=== PATIENT | female | born 1940 | race Caucasian/White ===

== ENCOUNTER → 2019-06-15 | Outpatient (CLI) | payer MEDICARE, BC, OTHER ==
[~2019-06-15] MED LIST: AMANTADINE HCL100 M2 PO; AMANTADINE HCL100 MG PO; AVONEX33 MCG IM; CEPHALEXIN500 M1 PO; CIPRO500 MG PO; DETROL LA 4MG4 MG PO; DIPHENHYDRAMINE25 MG PO; KLOR-CON 88 MEQ PO; LASIX80 MG PO; LIORESAL20 MG PO; LOMOTIL 0.025 M1 TAB PO; METFORMIN1000 MG PO; METOLAZONE5 MG PO; MIDRIN 325 MG-11 CAP PO; OCEAN NASAL SPR45 ML NS; PROVIGIL200 MG PO; TAGAMET400 MG PO; VITAMIN B-6100 MG PO; VITAMIN D32000 IU PO; ZOFRAN4 M1 PO
== END ==
LOC: MC.RAD 11:26
DX: N63.20 Unspecified lump in the left breast, unspecified quadrant (principal); Z90.13 Acquired absence of bilateral breasts and nipples

== ENCOUNTER 2021-05-24 21:08 | Inpatient (IN) | payer MEDICARE, BC, OTHER ==
[~2021-05-24] VITALS: Ht 165.1 cm; Wt 116.4 kg
[~2021-05-24 21:08] MED LIST changes: +AVONEX PEN30 MCG/0.5 IM; -AVONEX33 MCG IM; +KLOR-CON 1010 MEQ PO; -KLOR-CON 88 MEQ PO; +LASIX 40MG TABL40 MG PO; -LASIX80 MG PO; -VITAMIN D32000 IU PO; +VITAMIND3 5000 PO
[2021-05-24 21:53] LABS: BASO % 0.2 % (0.0-2.0); GRAN # 13.8 K/mm3 (1.4-6.5); GRAN % 77.4 % (42.2-75.2); HEMOGLOBIN 12.5 g/dl (12.5-16.0); LYMPH # 0.8 K/mm3 (1.2-3.4); LYMPH % 4.4 % (20.0-51.0); MEAN CELL VOLUME 84 fl (80.0-100.0); MEAN CORPUSCULAR HEMOGLOBIN 26 pg (27.0-31.0); MEAN CORPUSCULAR HGB CONC 31 g/dl (33.0-37.0); MEAN PLATELET VOLUME 11.4 fl (7.4-10.4); MONO # 2.7 K/mm3 (0.1-0.6); MONO % 15.3 % (1.7-9.3); PLATELET COUNT 234 K/mm3 (130-400); RED BLOOD COUNT 4.76 M/mm3 (4.10-5.30); REDCELL DISTRIBUTION WIDTH-CV 15.4 % (11.5-14.5)
[2021-05-24 22:02] LABS: INR 1.2 (0.8-3.0); PROTHROMBIN TIME 12.9 SECONDS (9.7-12.8)
[2021-05-24 22:04] LABS: PARTIAL THROMBOPLASTIN TIME 33.7 SECONDS (26.0-37.0)
[2021-05-24 22:12] LABS: ALBUMIN 3.4 gm/dL (3.4-4.8); BILIRUBIN,TOTAL 0.7 mg/dL (0.2-1.2); CALCIUM 9.7 mg/dL (8.4-10.2); CREATININE, serum 1.89 mg/dL (0.57-1.11); POTASSIUM 3.9 mmol/L (3.5-4.5); TOTAL PROTEIN 7.3 gm/dL (6.2-8.1)
[2021-05-24 22:16] LABS: BAND 6 % (0-10); HYPOCHROMIA 2+; LYMPHOCYTE 1 % (20.0-51.0); NEUTROPHILS 73 % (42.0-75.2); PLATELET ESTIMATE NORMAL (NORMAL)
[2021-05-24 22:17] LABS: ANISOCYTOSIS 1+
[2021-05-24 22:28] LABS: BUDDING YEAST Present /hpf; MUCOUS Present /lpf; PH 5 (5-8); SQUAMOUS EPITHELIAL 0-2 /hpf; URINE APPEARANCE Cloudy; URINE BACTERIA Many /hpf; URINE BILIRUBIN Negative (NEGATIVE); URINE BLOOD 3+ (NEGATIVE); URINE COLOR Yellow; URINE GLUCOSE Negative (NEGATIVE); URINE KETONE Negative (NEGATIVE); URINE LEUKOCYTE ESTERASE 3+ (NEGATIVE); URINE NITRATE Negative (NEGATIVE); URINE PROTEIN(semi-quant) 2+ (NEGATIVE); URINE UROBILINOGEN Negative (NEGATIVE); URINE WBC >50 /hpf
[2021-05-24 22:32] LABS: THYROID STIMULATING HORMONE 1.726 uIU/mL (0.350-4.940)
[2021-05-24 22:34] LABS: TROPONIN-I 0.065 ng/mL (0.00-0.033)
[2021-05-24 22:37] LABS: COLLECTION METHOD CATHETER
[2021-05-24 23:10] LABS: CALCIUM 8.8 mg/dL (8.4-10.2); CREATININE, serum 1.81 mg/dL (0.57-1.11); POTASSIUM 3.9 mmol/L (3.5-4.5)
[2021-05-25] VITALS (7 sets, daily range): BP systolic 101–134; BP diastolic 38–88; PULSE 73–88; TEMP 97.3–98.7
--- NOTE | 2021-05-25 02:19 | NUR ---
Vancomycin Initial Dosing Pharmacy Note Ordering provider: Cris Sanchez DO Indication/duration: SEVERE SEPSIS 2/2 PNA/UTI / 7 DAYS Trough goal: 15-20 DOSING HX: NONE IDENTIFIED BMI: 56.4 WT: 130.9 KG ADJBW: 80 KG SCR: 1.81 ESTCRCL~ 31 ML/MIN T 1/2 ~ 23H TMAX: 98.1 WBC: 17.9 LA: 3.6 ->2.5 UA -> 2+ PROTEIN, 3+ BLOOD, 3+ LEUK EST, 5-10 RBC, >50 WBC MICRO IN PROCESS CXR REPORTING RLL OPACITY, SUSPECTING PNA. AND PROBABLE SMALL LEFT PLEURAL EFFUSION PT RECEIVED A LOADING DOSE OF 1.5 GM X1. WILL GIVE AN ADDITIONAL 1GM NOW TO ACCOUNT FOR SUB OPTIMAL LOAD. WILL THEN START A MAINTENANCE DOSE OF 1GM Q24H. WILL FOLLOW CLOSELY PT AT HIGH RISK FOR NOT FOLLOWING POPULATION BASED KINETICS AND ACCUMULATION 2/2 ELEVATED BMI. WILL FOLLOW RENAL FUNCTION, MICRO AND TREATMENT PLAN FOR NEED TO ADJUST THERAPY. THANK YOU FOR THIS DOSING CONSULT
--- NOTE | 2021-05-25 03:00 | NUR ---
PATIENT ADMITTED TO ROOM 343 VIA ED CART WITH ER NURSE PRESENT. PATIENT TRANSFER TO BED VIA SLIDE BOARD WITH X4 STAFF ASSIST D/T PATIENT'S WEAKNESS. PATIENT ALERT/ORIENTED. TELE IN PLACE. HEPARIN INFUSING AT 23 ML/HR PREVIOUSLY SET IN ED. OXYGEN CONTINUES PER NC AT 3 L ON ADMIT, REPORTED SOA WITH EXERTION. PATIENT REPORTS CHRONIC H/O INCONTINENCE OF BOTH BOWEL AND BLADDER. OBSERVED SOME REDNESS TO COCCYX AREA WITH SKIN INTACT AND OVERALL SKIN IS VERY DRY AND FLAKING OBSERVED TO MAEVE EXTREMITIES. OBSERVED WEAK NONPRODUCTIVE INTERMITTENT COUGH SINCE ADMITTED TO ROOM.
[2021-05-25 03:39] LABS: ARTERIAL BLD GAS O2 SATURATION 96.4 % (92-100); ARTERIAL BLD GAS TCO2 CT 20.8; ARTERIAL BLOOD GAS BASE EXCESS -4.5 (-2-2); ARTERIAL BLOOD GAS HCO3 19.8 meq/L (22-26); ARTERIAL BLOOD GAS PCO2 33.7 mmHg (35-45); ARTERIAL BLOOD GAS PO2 88.5 mmHg (80-100); ARTERIAL BLOOD GAS pH 7.39 (7.35-7.45)
[2021-05-25] MEDS ORDERED: TYLENOL 500MG500 MG PO (03:41)
[2021-05-25] MEDS ORDERED: JANUVIA 100MG100 MG PO (03:49)
[2021-05-25] MEDS ORDERED: SYNTHROID0.05 MG/TA PO (03:53)
[2021-05-25] MEDS ORDERED: SYNTHROID 0.0.025 MG PO (03:54)
[2021-05-25] MEDS ORDERED: VIBERZI100 MG PO (03:56)
[2021-05-25] MEDS ORDERED: CYMBALTA 60MG60 MG PO (03:58)
[2021-05-25] MEDS ORDERED: MYRBETR50MG PO (03:59)
[2021-05-25] MEDS ORDERED: COZAAR 25MG25 MG/TAB PO (04:00)
[2021-05-25] MEDS ORDERED: GLUCOPHAGE1000 MG PO (04:49)
[2021-05-25] MEDS ORDERED: BENADRYL50 MG PO (04:49)
--- NOTE | 2021-05-25 05:55 | NUR ---
HepXa greater than one. Put on hold. Will recheck at 0800. Primary nurse notified as well.
[2021-05-25 05:58] LABS: CALCIUM 8.5 mg/dL (8.4-10.2); CREATININE, serum 1.85 mg/dL (0.57-1.11); POTASSIUM 3.5 mmol/L (3.5-4.5)
--- NOTE | 2021-05-25 06:12 | NUR ---
RUBA Clements notified of elevated Troponin.
--- NOTE | 2021-05-25 07:16 | NUR ---
Cardiology consult called to Dr. Meehan at this time.
--- NOTE | 2021-05-25 07:22 | NUR ---
CHANGE OF SHIFT REPORT GIVEN TO DAY SHIFT NURSE, ANDREW SERRATO.
--- NOTE | 2021-05-25 15:14 | NUR ---
Master Police Detective met with patient to discuss discharge planning. Patient lives in [place] with her daughter, Madelaine (ph#[phone]) [address] Dr. Messer for primary care. Patient obtains medications from [facility] with no difficulties. Patient has a cane, arm crutches, front wheeled walker, and rollator at home. Patient does not have home oxygen but is currently on oxygen during this stay. Patient reports independence with ADLS and plans to return home upon discharge. Patient advised she has a living will. SW contacted [facility] and asked about PT/OT. Discharge Plan: Home pending PT/OT recs
[2021-05-26] VITALS (7 sets, daily range): BP systolic 108–147; BP diastolic 43–64; PULSE 72–83; TEMP 97.5–98.3
[2021-05-26 04:07] LABS: BASO % 0.2 % (0.0-2.0); EOS % 0.2 % (0-4.0); GRAN # 9.5 K/mm3 (1.4-6.5); GRAN % 76.5 % (42.2-75.2); LYMPH # 1.4 K/mm3 (1.2-3.4); LYMPH % 10.9 % (20.0-51.0); MEAN CELL VOLUME 86 fl (80.0-100.0); MEAN CORPUSCULAR HGB CONC 31 g/dl (33.0-37.0); MEAN PLATELET VOLUME 10.9 fl (7.4-10.4); MONO # 1.4 K/mm3 (0.1-0.6); PLATELET COUNT 188 K/mm3 (130-400); RED BLOOD COUNT 3.76 M/mm3 (4.10-5.30); REDCELL DISTRIBUTION WIDTH-CV 15.4 % (11.5-14.5)
[2021-05-26 04:13] LABS: HEMATOCRIT 32.2 % (37.0-47.0); MEAN CORPUSCULAR HEMOGLOBIN 26 pg (27.0-31.0)
[2021-05-26 04:16] LABS: HEMOGLOBIN 9.9 g/dl (12.5-16.0)
[2021-05-26 04:28] LABS: CALCIUM 8.3 mg/dL (8.4-10.2); CREATININE, serum 1.28 mg/dL (0.57-1.11); POTASSIUM 3.5 mmol/L (3.5-4.5)
--- NOTE | 2021-05-26 20:00 | NUR ---
Report received, assumed care for night manager. Assessment complete. A&Ox4. Denies nausea. Short of air with activity-denies at rest. Rating pain 2/10 on pain scale-generalized body aches-denies need for intervention. Bilat lung sounds coarse in all lobes. States she has a dry cough with no productions. States she has issues with allergies this time of year. Bilat eyes with yellow drainage as well. States voiding well/tolerating PO. Plan of care discussed for this shift to include HS meds/calling for questions/cocnerns. Verbalizes understanding. Sitting up in recliner-states she prefers to sleep in recliner over bed. Call light in reach. Will monitor.
--- NOTE | 2021-05-27 00:30 | NUR ---
Called requesting cough drops. JAYA ClementsPPAH-[id number] and new orders received.
[2021-05-27 03:44] VITALS: BP 129/56; PULSE 73; TEMP 97.6
--- NOTE | 2021-05-27 06:09 | NUR ---
Had an uneventful night. VS remained stable. O2@ 0.5L/NC. Sputum sent for culture. Was up in room using cane with two assist x3. Denies pain/nausea. Cough drops seem to be helping per patient. Call light in reach. Will monitor.
[2021-05-27 06:51] LABS: MEAN CORPUSCULAR HEMOGLOBIN 27 pg (27.0-31.0); MEAN CORPUSCULAR HGB CONC 33 g/dl (33.0-37.0); MEAN PLATELET VOLUME 11.3 fl (7.4-10.4); PLATELET COUNT 214 K/mm3 (130-400); RED BLOOD COUNT 4.12 M/mm3 (4.10-5.30); REDCELL DISTRIBUTION WIDTH-CV 15.2 % (11.5-14.5)
[2021-05-27 06:56] LABS: HEMATOCRIT 33.5 % (37.0-47.0); MEAN CELL VOLUME 81 fl (80.0-100.0)
[2021-05-27 06:58] LABS: CALCIUM 9.1 mg/dL (8.4-10.2); CREATININE, serum 0.95 mg/dL (0.57-1.11); POTASSIUM 3.6 mmol/L (3.5-4.5)
[2021-05-27 07:47] LABS: BAND 2 % (0-10); EOSINOPHIL 2 % (0-4); LYMPHOCYTE 20 % (20.0-51.0); NEUTROPHILS 71 % (42.0-75.2)
[2021-05-27 07:49] LABS: ANISOCYTOSIS 1+; HYPOCHROMIA 1+; PLATELET ESTIMATE NORMAL (NORMAL)
[2021-05-27 08:52] VITALS: BP 131/52; PULSE 75; TEMP 97.4
[2021-05-27 11:58] VITALS: BP 142/48; PULSE 72; TEMP 98.1
[2021-05-27 16:23] VITALS: BP 119/58; PULSE 78; TEMP 97.9
[2021-05-27 19:09] VITALS: BP 118/56; PULSE 78; TEMP 98
--- NOTE | 2021-05-27 20:00 | NUR ---
Report received, assumed care for photostatic copy maker. Assessment complete. A&Ox4. Denies pain/nausea. Short of breath with activity. VS stable. O2 sats WNL with no oxygen. Plan of care discussed fort this shift to include HS meds/calling for questions/concerns. Verbalizes understanding. Call light in reach. Will monitor.
[2021-05-27 23:13] VITALS: BP 128/56; PULSE 85; TEMP 98.1
[2021-05-28] VITALS (7 sets, daily range): BP systolic 84–151; BP diastolic 57–75; PULSE 72–81; TEMP 97.5–98.7
--- NOTE | 2021-05-28 00:30 | NUR ---
Called requesting a cough drop. Has a dry unproductive cough. Given at this time.
--- NOTE | 2021-05-28 05:36 | NUR ---
Has had a dry non productive cough most of night. Denies pain/nausea/shortness of breath. VS remain stable. Less drainage from eyes compared to previous shifts. Slept in recliner stating the bed is uncomfortable. Denies current needs. Call light in reach. Will monitor.
--- NOTE | 2021-05-28 07:00 | NUR ---
Report received from ROJELIO Zurita. PT in chair at side of bed resting, denies needs, will continue ot monitor.
--- NOTE | 2021-05-28 08:11 | NUR ---
Assessment charted. Pt in chair resting, BLE +2 chronic edema, scaley and flakey. Denies pain. Doing well on RA, dry cough, lungs are CTA in upper lobes and fine crackles in bases. INT to LW and RW. Will conitnue to monitor.
--- NOTE | 2021-05-28 14:06 | NUR ---
Referrals faxed to Mario at [facility] and Kandy at [facility].Contacted made and let the facilites know the patient is ready for DC
--- NOTE | 2021-05-28 18:51 | NUR ---
Pt doing well, up to chair most of day, up to commode with 2 PAX. Denies needs, report given to nightshift klevere who will resume care.
--- NOTE | 2021-05-28 19:00 | NUR ---
RECEIVED CHANGE OF SHIFT REPORT FROM DAY SHIFT NURSE
[2021-05-29 03:28] VITALS: BP 150/61; PULSE 86; TEMP 97.8
[2021-05-29 06:47] LABS: HEMOGLOBIN 10.2 g/dl (12.5-16.0); MEAN CELL VOLUME 82 fl (80.0-100.0); MEAN CORPUSCULAR HEMOGLOBIN 26 pg (27.0-31.0); MEAN CORPUSCULAR HGB CONC 32 g/dl (33.0-37.0); MEAN PLATELET VOLUME 11.1 fl (7.4-10.4); PLATELET COUNT 271 K/mm3 (130-400); RED BLOOD COUNT 3.95 M/mm3 (4.10-5.30); REDCELL DISTRIBUTION WIDTH-CV 15.5 % (11.5-14.5)
[2021-05-29 06:50] LABS: HEMATOCRIT 32.4 % (37.0-47.0)
[2021-05-29 07:06] LABS: CALCIUM 9.7 mg/dL (8.4-10.2); CREATININE, serum 0.98 mg/dL (0.57-1.11); MAGNESIUM 1.8 mg/dL (1.6-2.6); POTASSIUM 3.7 mmol/L (3.5-4.5)
--- NOTE | 2021-05-29 07:16 | NUR ---
CHANGE OF SHIFT REPORT GIVEN TO DAY SHIFT NURSE, VERA SERRATO.
[2021-05-29 08:00] VITALS: BP 156/79; PULSE 87; TEMP 98.5
[2021-05-29 08:10] LABS: BAND 16 % (0-10); EOSINOPHIL 1 % (0-4); LYMPHOCYTE 22 % (20.0-51.0); METAMYELOCYTE 3 % (0-0); NEUTROPHILS 53 % (42.0-75.2); PLATELET ESTIMATE NORMAL (NORMAL)
[2021-05-29] MEDS ORDERED: POLYMYXIN B/TRIMETH OP (09:07)
[2021-05-29] MEDS ORDERED: MONODOX100 PO (09:09)
[2021-05-29] MEDS ORDERED: OMNICEF 300MG300 MG PO (09:10)
--- NOTE | 2021-05-29 10:35 | NUR ---
Kandy accepts patient to skilled care at today and will arrange for transportation. Patient notified. SW provided IM letter to patient.
--- NOTE | 2021-05-29 10:45 | NUR ---
Shift assessment preformed. Scheduled medications given. Patient states that pain is at a tolerable level at this time. Lung sounds clear. +2 edema noted on BLE. Generalized bruising noted. Rapid Covid Swab collected. Patient will be discharging to [facility] later this afternoon. Patient denies any further needs at this time. Call light in reach. Fall precautions in place. VSS. Patient A&O.
[2021-05-29 10:53] VITALS: BP 156/79; PULSE 87; TEMP 98.5
[2021-05-29 11:13] VITALS: BP 134/56; PULSE 74; TEMP 97.8
--- NOTE | 2021-05-29 11:51 | NUR ---
Transportation time arranged for 1200 for [facility] to transport the patient. Nursing staff, Kandy with [facility] contacted and clinical updates faxed. Patient transport time arranged for 1200 to [facility]. Nursing staff, physician and patient notified. All are in agreement for transfer to [facility] today. Attempt made to contact the patient's daughter Madelaine and was unsuccessful. New covid swab requested. Discharge plan: [facility]
--- NOTE | 2021-05-29 12:00 | NUR ---
Patient deemed fit for discharge. IV DC'd, catheter intact, no signs of phelbitis. Report given to ROJELIO West at [facility]. Patient denies any pain, discomfort, SOA, or further needs at this time. VSS. Patient A&O. Patient escorted from building by [facility] staff.
== END 2021-05-29 12:00 | DRG 871 ==
LOC: COL.ER 21:08 → SURG 05-25 01:44
PROVIDERS: Nurse Practitioner Family; Physician Assistant; Student in an Organized Health Care Education/Training Program; ADMIT Internal Medicine
PROC: 5A0935A Assistance with Respiratory Ventilation, Less than 24 Consecutive Hours, High Flow/Velocity Cannula (ICD-10-PCS; principal; 2021-05-26)
DX: A41.9 Sepsis, unspecified organism (principal); J96.01 Acute respiratory failure with hypoxia; J18.9 Pneumonia, unspecified organism; E87.2 Acidosis; N39.0 Urinary tract infection, site not specified; E87.1 Hypo-osmolality and hyponatremia; N17.9 Acute kidney failure, unspecified; E03.9 Hypothyroidism, unspecified; Z90.49 Acquired absence of other specified parts of digestive tract; Z90.710 Acquired absence of both cervix and uterus; Z90.13 Acquired absence of bilateral breasts and nipples; Z79.84 Long term (current) use of oral hypoglycemic drugs; M19.90 Unspecified osteoarthritis, unspecified site; Z85.828 Personal history of other malignant neoplasm of skin; H10.9 Unspecified conjunctivitis; G35 Multiple sclerosis; K52.9 Noninfective gastroenteritis and colitis, unspecified; R65.20 Severe sepsis without septic shock; E11.22 Type 2 diabetes mellitus with diabetic chronic kidney disease; I12.9 Hypertensive chronic kidney disease with stage 1 through stage 4 chronic kidney disease, or unspecified chronic kidney disease; N18.9 Chronic kidney disease, unspecified; Z20.822 Contact with and (suspected) exposure to COVID-19
CPT/HCPCS: 99232-AI; 99239; A9540; A9567; J0696; J1644; J1650; J1815; J2543; J3370; J7030; J7050; J7120

== ENCOUNTER 2023-08-08 08:22 | Outpatient (RCR) | payer MEDICARE, BC, OTHER ==
[~2023-08-08 08:22] MED LIST changes: +BENADRYL50 MG PO; +COZAAR 25MG25 MG/TAB PO; +CYMBALTA 60MG60 MG PO; +GLUCOPHAGE1000 MG PO; +JANUVIA 100MG100 MG PO; +MONODOX100 PO; +MYRBETR50MG PO; +OMNICEF 300MG300 MG PO; +POLYMYXIN B/TRIMETH OP; +SYNTHROID 0.0.025 MG PO; +SYNTHROID0.05 MG/TA PO; +TYLENOL 500MG500 MG PO; +VIBERZI100 MG PO
== END 2023-09-04 | disposition home or self-care (01) ==
LOC: WSPT
DX: R60.0 Localized edema (principal)

== ENCOUNTER 2024-04-29 06:57 | Inpatient (IN) | payer MEDICARE, BC ==
[~2024-04-29] VITALS: Ht 162.6 cm; Wt 112.4 kg
[2024-04-29] VITALS (7 sets, daily range): BP systolic 111–170; BP diastolic 54–91; PULSE 60–77; TEMP 97.3–99.1
[2024-04-29] MEDS ORDERED: NS 1,000 ML IV ONE ×2 (07:15→09:15)
[2024-04-29 07:34] LABS: HEMOGLOBIN 13.1 g/dl (12.5-16.0); MEAN CELL VOLUME 84 fl (80.0-100.0); MEAN CORPUSCULAR HEMOGLOBIN 28 pg (27-31); MEAN CORPUSCULAR HGB CONC 33 g/dl (33.0-37.0); MEAN PLATELET VOLUME 11.6 fl (7.4-10.4); PLATELET COUNT 142 K/mm3 (130-400); RED BLOOD COUNT 4.76 M/mm3 (4.10-5.30); REDCELL DISTRIBUTION WIDTH-CV 15.9 % (11.5-14.5)
[2024-04-29 07:58] LABS: ALBUMIN 3.4 g/dL (3.4-4.8); BILIRUBIN,TOTAL 0.3 mg/dL (0.2-1.2); C-REACTIVE PROTEIN 3.28 mg/dL (0.00-0.50); CALCIUM 8.7 mg/dL (8.4-10.2); CREATININE, serum 1.7 mg/dL (0.57-1.11); POTASSIUM 4.5 mEq/L (3.5-4.5); TOTAL PROTEIN 6.6 g/dl (6.2-8.1)
[2024-04-29 08:04] LABS: TROPONIN-I 0.023 ng/mL (0.00-0.033)
[2024-04-29 08:09] LABS: BAND 15 % (0-10); LYMPHOCYTE 14 % (20.0-51.0); NEUTROPHILS 51 % (42.0-75.2); PLATELET ESTIMATE NORMAL (NORMAL)
[2024-04-29 08:22] LABS: PH 5.5 (5.0-8.5); URINE APPEARANCE CLOUDY (CLEAR/HAZY); URINE BLOOD 3+ (NEGATIVE); URINE COLOR YELLOW (YELLOW); URINE GLUCOSE NEGATIVE (NEGATIVE); URINE KETONE TRACE (NEGATIVE); URINE NITRATE NEGATIVE (NEGATIVE); URINE PROTEIN(semi-quant) 3+ (NEGATIVE); URINE UROBILINOGEN 0.2 E.U/dL (0.2-1.0)
[2024-04-29 08:31] LABS: AMORPHOUS CRYSTAL PRESENT (NOT PRESENT); COLLECTION METHOD CATHETER; SQUAMOUS EPITHELIAL 0-2 /hpf (0-10); URINE BACTERIA MANY /hpf (NONE SEEN); URINE RBC 0-2 /hpf (0-2); URINE WBC 0-2 /hpf (0-2)
[2024-04-29] MEDS ORDERED: Doxycycline Hyclate 100 MG in NS 150 ML IV ONE (09:00)
[2024-04-29] MEDS ORDERED: cefTRIAXone 1 G in Water For Injection,Sterile 10 ML IV ONE (09:00)
[2024-04-29] MEDS ORDERED: dexAMETHasone 10 MG/ML VIAL IV ONE (09:30)
[2024-04-29] MEDS ORDERED: BUMEX2 MG PO (09:42)
[2024-04-29] MEDS ORDERED: TRULICITY1.5 MG/0.5 SQ (09:46)
[2024-04-29] MEDS ORDERED: ELIQUIS 5MG PO (09:47)
[2024-04-29] MEDS ORDERED: K-DUR 10 MEQ T10 MEQ PO (09:48)
[2024-04-29] MEDS ORDERED: NEURONTIN100 MG/CAP PO (09:49)
--- NOTE | 2024-04-29 14:26 | NUR ---
Patient arrived to room 355, from the ED, with diagnosis of COVID at approximately 1330. O2 2L/NC. Patient very talkative and has no issues with completing sentences. Intake completed. Allergies and Pharmacy verified. Med rec needs to be corrected per ED nurse.
[2024-04-29] MEDS ORDERED: Docusate Sodium 100 MG CAP PO PRN (14:30)
[2024-04-29] MEDS ORDERED: Acetaminophen 325 MG TAB PO PRN (14:30)
[2024-04-29] MEDS ORDERED: Polyethylene Glycol 3350 17 GM PDS PO PRN (14:30)
[2024-04-29] MEDS ORDERED: LR 1,000 ML IV SCH (14:30)
[2024-04-29] MEDS ORDERED: Ondansetron 4 MG/2 ML VIAL IV PRN (14:30)
[2024-04-29] MEDS ORDERED: Dextrose 50% Water 25 GM/50 ML SYRINGE IV PRN (15:00)
[2024-04-29] MEDS ORDERED: Glucagon 1 MG VIAL IM PRN (15:00)
[2024-04-29] MEDS ORDERED: Dextrose (Glucose) 15 GM (4 x 3.75 GM) Chewable TABLET PACK PO PRN (15:00)
[2024-04-29] MEDS ORDERED: Insulin Lispro (HumaLOG) SQ SCH (17:00)
[2024-04-29] MEDS ORDERED: Albuterol 90 MCG/PUFF 8 GM MDI IH PRN (17:00)
--- NOTE | 2024-04-29 18:41 | NUR ---
PT AWAKE, ALERT AND ORIENTATED SITTING UP IN BED. PT REPORTS WHOLE BODY PAIN. TYLENOL 650MG PRN GIVEN FOR PAIN. PT TOLERATED WELL.
[2024-04-29] MEDS ORDERED: Apixaban 5 MG TABLET PO SCH (21:00)
[2024-04-29] MEDS ORDERED: guaiFENesin ER 600 MG **** subs to guaiFENesin 200 MG PO SCH (21:00)
[2024-04-29] MEDS ORDERED: Gabapentin 100 MG CAP PO SCH (21:00)
[2024-04-29] MEDS ORDERED: Famotidine 20 MG TAB PO SCH (21:00)
[2024-04-29] MEDS ORDERED: guaiFENesin 200 MG TAB PO SCH (21:00)
[2024-04-29] MEDS ORDERED: Doxycycline Monohydrate 100 MG CAP PO SCH (21:00)
--- NOTE | 2024-04-29 21:45 | NUR ---
Patient resting in bed. Rates pain at 6/10, states this is her baseline and denies need for pain meds at this time. Needs met. Assessment complete. IV in right forearm infusing without complications. Mepilex applied to LLE and sacrum. Purewick changed and onofre-care provided. Call light and personal items in reach. Bed in low position and bed alarm on.
[2024-04-30] VITALS (11 sets, daily range): BP systolic 103–125; BP diastolic 49–68; PULSE 58–68; TEMP 97.5–97.9
[2024-04-30 07:01] LABS: MEAN CELL VOLUME 85 fl (80.0-100.0); MEAN CORPUSCULAR HGB CONC 32 g/dl (33.0-37.0); MEAN PLATELET VOLUME 11.7 fl (7.4-10.4); PLATELET COUNT 120 K/mm3 (130-400); RED BLOOD COUNT 4.11 M/mm3 (4.10-5.30); REDCELL DISTRIBUTION WIDTH-CV 15.9 % (11.5-14.5)
[2024-04-30 07:14] LABS: CALCIUM 7.5 mg/dL (8.4-10.2); CREATININE, serum 1.42 mg/dL (0.57-1.11); POTASSIUM 4.2 mEq/L (3.5-4.5)
[2024-04-30 07:19] LABS: HEMATOCRIT 34.8 % (37.0-47.0); MEAN CORPUSCULAR HEMOGLOBIN 27 pg (27-31)
[2024-04-30 07:54] LABS: ANISOCYTOSIS 1+; BAND 18 % (0-10); LYMPHOCYTE 34 % (20.0-51.0); NEUTROPHILS 35 % (42.0-75.2); PLATELET ESTIMATE NORMAL (NORMAL)
[2024-04-30] MEDS ORDERED: Mirabegron ER 50 MG TAB PO SCH (09:00)
[2024-04-30] MEDS ORDERED: dexAMETHasone 4 MG TAB PO SCH (09:00)
[2024-04-30] MEDS ORDERED: cefTRIAXone 1 G in Water For Injection,Sterile 10 ML IV SCH (09:00)
[2024-04-30] MEDS ORDERED: Menthol Cough/Sore Throat LOZENGE MM PRN (12:15)
--- NOTE | 2024-04-30 13:25 | NUR ---
metal casting trades worker attempted to reach patient via room phone and alternate phone number to conduct intake assessment. The patient was unavailable and did not answer either call. SW also attempted to reach patient's contact [facility], but chart phone number was inaccurate. SW spoke with patient's PCP office and obtained the correct P# for Madelaine ([phone]) but Madelaine did not answer any attempted calls. SW will attempt to re-contact at a later time.
--- NOTE | 2024-04-30 16:00 | NUR ---
venetian blind worker called pt's daughter, Madelaine [phone] and she reports to be "driving the bus" and cannot talk now. She states she is off at 4:40pm. YOLANDA advised she will attempt to reach her in the morning to discuss. YOLANDA notes pt is reccomended for SNF. Discharge Plan: [facility]
--- NOTE | 2024-04-30 18:46 | NUR ---
Patient A&Ox4, sitting bedside eating dinner. Pt reports baseline whole body pain of 5/10, tylenol PRN given x1 this morning. Pt reports worsening sore throat and halls cough drops given. LR infusing at 75mL/h into right forearm IV. Patient denies any other complaints at the moment. Patient x2 assist, improving strength. Call stephenson within reach. Patient instructed to call if she needs to go to the bathroom, pt verbalized understanding.
--- NOTE | 2024-04-30 19:00 | NUR ---
Agree with Jacklyn Rivers RN assessment and note except patient has LLE cellulits on borrego with BLE edema of +2-3. Droplet/Contact precautions in place for +COVID. Fall precautions in place.
--- NOTE | 2024-04-30 20:08 | NUR ---
PATIENT RESTING IN BED WATCHING TV. REPORTS GENERALIZED ACHING THROUGHOUT BODY RATED 5/10. DENIES FEELING SHORT OF BREATH. REQUESTED TO HAVE NASAL CANNULA PLACED ON HER AGAIN SINCE HER SATURATION IS 93%. DENIES CHEST PAIN, PALPITATIONS, SHORTNESS OF BREATH. CALL LIGHT WITHIN REACH. BED IS LOCKED AND IN LOW POSITION.
[2024-05-01] VITALS (13 sets, daily range): BP systolic 107–143; BP diastolic 48–90; PULSE 43–56; TEMP 97.5–97.7
[2024-05-01 06:27] LABS: GRAN # 2.2 K/mm3 (1.4-6.5); GRAN % 63.1 % (42.2-75.2); HEMATOCRIT 33.7 % (37.0-47.0); HEMOGLOBIN 11.1 g/dl (12.5-16.0); LYMPH # 0.9 K/mm3 (1.2-3.4); LYMPH % 27.3 % (20.0-51.0); MEAN CELL VOLUME 83 fl (80.0-100.0); MEAN CORPUSCULAR HEMOGLOBIN 27 pg (27-31); MEAN CORPUSCULAR HGB CONC 33 g/dl (33.0-37.0); MONO # 0.3 K/mm3 (0.1-0.6); MONO % 9.3 % (1.7-9.3); PLATELET COUNT 120 K/mm3 (130-400); RED BLOOD COUNT 4.06 M/mm3 (4.10-5.30); REDCELL DISTRIBUTION WIDTH-CV 15.9 % (11.5-14.5)
[2024-05-01 06:39] LABS: ALBUMIN 2.8 g/dL (3.4-4.8); BILIRUBIN,TOTAL 0.2 mg/dL (0.2-1.2); CALCIUM 7.6 mg/dL (8.4-10.2); CREATININE, serum 1.24 mg/dL (0.57-1.11); POTASSIUM 4.6 mEq/L (3.5-4.5); TOTAL PROTEIN 5.4 g/dl (6.2-8.1)
--- NOTE | 2024-05-01 10:00 | NUR ---
Upon entering room, patient was sitting at side of bed, working with therapy on ADLs. Requested patient stand to move up towards the head of the bed more before lying her back in bed. Patient incontinent of stool once she stood- stool to bed rail, gown, socks and floor. Pt transfered to [facility] but did not stool any further. Pt placed back to bed. Fall precautions in place. EDEN Lim notified of patient's request of home Dante (grandson brought in yesterday). Order rec'd. Droplet/contact precautions in place. Fall precautions in place. O2 1L/NC. Denies SOA or cough.
[2024-05-01] MEDS ORDERED: [UNRECOGNIZED DRUG - REMARK] PO SCH (10:30)
[2024-05-01] MEDS ORDERED: Patient's Own Medication Item PO SCH (11:00)
--- NOTE | 2024-05-01 13:20 | NUR ---
Pt sitting up to side of bed upon entry to room. Tylenol administered for c/o generalized pain. IVF d/c'd per MD order. Patient now on RA and SpO2 >90%. Assisted patient back to bed. Purewick in place. Fall precautions in place.
--- NOTE | 2024-05-01 13:27 | NUR ---
music worker called pt's daughter, Cinthya Diaz" [phone] to discuss intake information. Daughter reports she is sick with COVID-PNEUMONIA too. She states pt lives with her and her son, Bayron in [place]. She sees Dr. Aguilar for PCP needs and obtains medications from [facility] or [facility] with no difficulties. She reports to have Medicare A/B, , BCBS, and BCBS Federal insurance for pt. She states pt is independent with ADLS and goes to clubs and hair appointments. She uses a quad cane and electric scooter for DME. She reports to pt's DPOA-HC. Madelaine then inquired about why YOLANDA was calling and YOLANDA informed her of the reason and discharge needs. She reports pt has been to [facility] in the past and is "sharp as a tac" so SW needs to talk to her. YOLANDA provided Medicare.gov to ROJELIO Castillo who took this to pt due to isolation. YOLANDA called pt's room phone x3 and she finally answered. She confirmed the above information that her preferences were [facility] and [facility]. She was open to rehab, but not at [place]. YOLANDA advised [facility] and [facility] could not accept her at this time due to COVID. She was agreeable to [facility] and other facilities. YOLANDA emailed referral to [facility] for review. YOLANDA was later informed by Dr. Espinosa that pt wants to return home with HH at this time. Dr. Espinosa anticipates discharge Saturday. YOLANDA spoke with pt who expressed wanting this and to work with therapy over the weekend. She was provided verbal information of Home Health services and what this entails. YOLANDA later received a call from daughter, Madelaine who appeared to forget the prior conversation in the am. She states she is "sick as a dog" and continued concerns with pt being home "alone and a high fall risk." YOLANDA informed her that pt would like to return home, but previously was open to SNF. Daughter began to disagree with YOLANDA and express concerns. YOLANDA inquired about if she could reach out to her son to provide update and she hung up the call. YOLANDA called pt's PCP YOLANDA Coy who reports Madelaine is DPOA-HC. She states pt was seen in 2020 and went to [facility] at the time, no new concerns. SW called pt's RN who reports pt stated she wants to go home Saturday. SW called pt's room who reports this is her plan and she threw away the Medicare.gov list. She declined HH services and states she is getting stronger and manages finally typically. SW informed her her daughter called and they should discuss concerns relationally. She states daughter gets like this and verbally is upset, but pt feels safe with her/going home. Discharge Plan: home, declined HH
--- NOTE | 2024-05-01 16:20 | NUR ---
SW received another call from pt's daughter via voicemail at 2:28pm reporting a "big issue" with her mother coming home. She states she "better not be a fall risk, no one will be home, and she better be good to go." SW did not return this call at this time due to previous conversations today with daughter. ROJELIO Castillo reports daughter has called her upset reporting dissatisfaction as well with discharge. Pt is axo x4 at this time and able to make her decisions. She has worked with therapy and Dr. Espinosa is aware of the plan and reccomendations for pt. YOLANDA did obtain grand-sonBayron's phone number as [phone]. SW left a voicemail to inquire if he had any concerns re: discharge with no one home and to include him in planning as daughter had concerns. YOLANDA provided weekend SW number to direct questions to. Discharge Plan: home with family
--- NOTE | 2024-05-01 18:50 | NUR ---
No further stools today. Denies needs at this time.
[2024-05-02] VITALS (13 sets, daily range): BP systolic 114–143; BP diastolic 50–63; PULSE 45–55; TEMP 97.5–98.3
[2024-05-02 06:14] LABS: BASO % 0.2 % (0.0-2.0); GRAN # 3.8 K/mm3 (1.4-6.5); GRAN % 68.3 % (42.2-75.2); HEMOGLOBIN 11.3 g/dl (12.5-16.0); LYMPH # 1.2 K/mm3 (1.2-3.4); LYMPH % 21.8 % (20.0-51.0); MEAN CELL VOLUME 85 fl (80.0-100.0); MEAN CORPUSCULAR HEMOGLOBIN 27 pg (27-31); MEAN CORPUSCULAR HGB CONC 31 g/dl (33.0-37.0); MEAN PLATELET VOLUME 12.3 fl (7.4-10.4); MONO # 0.5 K/mm3 (0.1-0.6); MONO % 8.3 % (1.7-9.3); PLATELET COUNT 140 K/mm3 (130-400); RED BLOOD COUNT 4.26 M/mm3 (4.10-5.30)
--- NOTE | 2024-05-02 09:01 | NUR ---
Assessment complete. Pt resting in bed upon entry to room. A/O x4. Audible xpiratory wheezing noted. Dyspnea at rest. Uses cough drops for c/o sore throat. Rates pain 5/10 and would like Tylenol. Droplet/Contact precautions in place. Fall precautions in place.
--- NOTE | 2024-05-02 09:40 | NUR ---
Tylenol administered for c/o generalized pain.
--- NOTE | 2024-05-02 17:51 | NUR ---
Patient sat up to side to side of bed for lunch and supper. Daughter, Madelaine called and spoke to this nurse and voiced concerns regarding her mother going home and reports she is her primary care provided. Patient aware of daughters concerns. Economics Department Chair, Imtiaz, spoke with this nurse yesterday and is also aware of daughters concerns.
--- NOTE | 2024-05-02 20:30 | NUR ---
Scheduled meds administered per OCT. Shift assessment complete. Pt. is dyspneic at rest. Pt. has intermittent episodes of excessive coughing. Noted expiratory wheezes across all lung felix upon auscultation. Wheezes not cleared w/ cough. BLE are edematous pitting +2. Pt. has cellulis to Lt. borrego dressed w/ mepilex. Dressing CDI. Purewick in place. Pt. is voiding clear evy urine. No further outstanding findings at this time. Pt. endorses 4/10 pain, but reports this is her pain goal and she denies need for comfort measures. Contacted RT regarding coughing and wheezing. Call light in reach and fall precautions in place.
[2024-05-03] VITALS (13 sets, daily range): BP systolic 127–147; BP diastolic 43–65; PULSE 47–64; TEMP 97.5–98.4
--- NOTE | 2024-05-03 00:04 | NUR ---
22g IV catheter inserted to Rt. hand. Pt. tolerated well.
--- NOTE | 2024-05-03 06:56 | NUR ---
Pt. resting in bed w/ eyes closed and respirations even & unloabored. Call light in reach and fall precautions in place
--- NOTE | 2024-05-03 09:00 | NUR ---
Patient sitting up on the side of the bed, she just finished breakfast. Complains of pain in her left hip 01/12, tylenol provided. At RA, VSS. Assessment completed, medicatins given. Pt repositioned. Hygiene provided. Purewick in place. Yellow clear output. No further needs at this time. Call light within reach. Bed alarm on.
--- NOTE | 2024-05-03 11:45 | NUR ---
Checking patient since BP was low according to POWDER TRUCK DRIVER. BP rechecked 147/54. Patient responds while calling her name, A&O X4 O2 sat 91% At room air. Denies any pain or discomfort, she states she just wants to sleep.
--- NOTE | 2024-05-03 14:48 | NUR ---
[facility] was notified per Dr. Espinosa that pt has decided she is no longer safe to d/c home and would like placement. Facilities in [place] have denied her. Per Dr. Espinosa she has been acepted to [facility] in [place]. [facility] did not read a note that would suggest she has been accepted. [facility] sent referral to [facility] and left a message for Faith to call back.
--- NOTE | 2024-05-03 20:30 | NUR ---
UPON SHIFT ASSESSMENT, MK WAS AWAKE SITTING ON BEDSIDE. SHE STATES HER PUREWICK FAILED. PERICARE, LINEN AND GOWN CHANGE PROVIDED. PUREWICK CHANGE PROVIDED AND NOW DRAINING PROPERLY. D/T PATIENT BEING IN SITTING POSITION AND LEGS DANGLING, BLLE DISCOLORED-APPEARING BLUE-FEET ELEVATED AND PEDAL PULSES PALPABLE, COLOR NOW PINK. PATIENT LLE COVERED WITH MEPIPLEX. PANNUS EXCORIATED AND INTERDRY PLACED. LUNG SOUNDS AUSCULTATED WHEEZES IN UPPER LOBES-REPIRATORY STATUS IS STABLE AND VS ARE WNL. PATIENT DENIES PAIN AT THIS TIME. BG WAS 273 REQUIRING 6 UNITS INSULIN. STATES NO NEEDS. CALL LIGHT WITHIN REACH, BED ALARM ON.
[2024-05-04] VITALS (7 sets, daily range): BP systolic 126–138; BP diastolic 55–61; PULSE 56–71; TEMP 98–98.2
--- NOTE | 2024-05-04 08:10 | NUR ---
pt a&ox4 resting in bed. pt assited self to side of bed for breakfast. vss and tele in place. contact/droplet precautions implemented. IV to right hand and right AC patent. purewick in place to assist with incontinence. +2 edema to BLE. fall precautions in place. pt denies needs at this time. call light in reach.
[2024-05-04 11:33] LABS: HEMOGLOBIN 11.7 g/dl (12.5-16.0); MEAN CELL VOLUME 83 fl (80.0-100.0); MEAN CORPUSCULAR HEMOGLOBIN 27 pg (27-31); MEAN CORPUSCULAR HGB CONC 33 g/dl (33.0-37.0); MEAN PLATELET VOLUME 12.2 fl (7.4-10.4); PLATELET COUNT 130 K/mm3 (130-400); RED BLOOD COUNT 4.32 M/mm3 (4.10-5.30); REDCELL DISTRIBUTION WIDTH-CV 15.9 % (11.5-14.5)
[2024-05-04 11:35] LABS: HEMATOCRIT 35.8 % (37.0-47.0)
--- NOTE | 2024-05-04 11:48 | NUR ---
fire crew worker was made aware that pt is now wanting SNF. [facility], [facility], and [facility] all continue to decline pt due to COVID status/no private rooms available. YOLANDA faxed referrals to [facility], [facility] in [place], [facility], and [facility] to review. SW called pt's room phone to inform her that [facility] declined her. She reports interest in [place], but agrees she needs rehab prior to going home and is agreeable to whomever accepts her. YOLANDA received email from Adelina at [facility] reporting interest in pt and that they can likely accept. YOLANDA emailed back all answers to her questions with help from RN Shalini. Discharge Plan: SNF
[2024-05-04 11:52] LABS: BAND 4 % (0-10); METAMYELOCYTE 2 % (0-0); MYELOCYTE 2 % (0-0)
[2024-05-04 11:54] LABS: ALBUMIN 2.6 g/dL (3.4-4.8); BILIRUBIN,TOTAL 0.4 mg/dL (0.2-1.2); CALCIUM 8.4 mg/dL (8.4-10.2); CREATININE, serum 1.44 mg/dL (0.57-1.11); HYPOCHROMIA 1+; LYMPHOCYTE 15 % (20.0-51.0); NEUTROPHILS 60 % (42.0-75.2); PLATELET ESTIMATE NORMAL (NORMAL); POTASSIUM 4.7 mEq/L (3.5-4.5); TOTAL PROTEIN 5.6 g/dl (6.2-8.1)
--- NOTE | 2024-05-04 13:27 | NUR ---
REPORT RECEIVED FROM JAG, CARE ASSUMED BY THIS NURSE. PT ASSISTED FROM BSC TO BED, REPORTS "I HAVEN'T BEEN ABLE TO LIFT MY LEGS FROM SITTING FOR YEARS." PT GIVE REQUESTED PILLOW PLACEMENT, NAPKINS, DRINKS, BOOKS, AND BED POSITIONING. PT DENIES OTHER NEEDS AT THIS TIME, CALL LT IN REACH, PURE WICK IN PLACE.
[2024-05-04] MEDS ORDERED: BACTRIM DS 8001 TAB PO (13:49)
[2024-05-04] MEDS ORDERED: AMOXICILLIN 8751 TAB PO (13:55)
--- NOTE | 2024-05-04 14:10 | NUR ---
fabric worker foreman spoke with Adelina at [facility] who can accept pt and transport at 3pm. YOLANDA faxed discharge orders over. YOLANDA informed RN Sabine and [facility]. YOLANDA spoke with pt over the phone who was agreeable as this is the only accepting location. YOLANDA completed IM from Medicare with pt who verbalized understanding and provided consent. YOLANDA placed original in chart and copy with RN to provide. Pt requests SW call her daughter, Cinthya Diaz" to inform her. YOLANDA spoke with daughter who reports agreeance and will arrive shortly to pack pt a bag. No further concerns. Discharge Plan: 1500 to [facility]
--- NOTE | 2024-05-04 15:33 | NUR ---
SNF STAFF TO FACILITY WITH W/C. NURSE AND TECH ASSIST PT WITH [facility], PUTTING ON PANTS. NURSE BAGGED PT'S BELONGINGS, CONFIRMED WITH PT THAT ALL BELONGINGS ARE SENT WITH PT. PT ALSO SENT WITH DISCHARGE INSTRUCTIONS, COUGH DROPS, AND HOME MED. PT DENIES OTHER NEEDS. REPORT CALLED TO NURSE AT [facility] AT 1530.
[2024-05-04] MEDS ORDERED: Sulfamethoxazole/Trimethoprim 800-160 MG TAB PO SCH (21:00)
== END 2024-05-04 15:22 | DRG 177 ==
LOC: COL.ER 06:57 → MEDICAL 08:54
PROVIDERS: Emergency Medicine; Physician Assistant; ADMIT Internal Medicine
DX: U07.1 COVID-19 (principal); J96.01 Acute respiratory failure with hypoxia; L03.116 Cellulitis of left lower limb; N17.9 Acute kidney failure, unspecified; E03.9 Hypothyroidism, unspecified; N25.89 Other disorders resulting from impaired renal tubular function; M19.90 Unspecified osteoarthritis, unspecified site; E11.65 Type 2 diabetes mellitus with hyperglycemia; I10 Essential (primary) hypertension; R53.81 Other malaise; G35 Multiple sclerosis; Z90.13 Acquired absence of bilateral breasts and nipples; Z90.710 Acquired absence of both cervix and uterus; Z90.49 Acquired absence of other specified parts of digestive tract; Z96.82 Presence of neurostimulator; Z79.899 Other long term (current) drug therapy; Z79.1 Long term (current) use of non-steroidal anti-inflammatories (NSAID); Z79.82 Long term (current) use of aspirin; Z79.891 Long term (current) use of opiate analgesic; Z85.9 Personal history of malignant neoplasm, unspecified; Z88.6 Allergy status to analgesic agent; Z88.0 Allergy status to penicillin; Z91.041 Radiographic dye allergy status; Z88.5 Allergy status to narcotic agent; Z88.8 Allergy status to other drugs, medicaments and biological substances
CPT/HCPCS: J0696; J1100; J1815; J2543; J7030; J7120; J8540